=== PATIENT | male | born 1965 | race Caucasian/White ===

== ENCOUNTER 2017-08-09 07:43 | Emergency (ER) | payer OTHER ==
[2017-08-09] MEDS: IBUPROFEN 600 MG TAB PO (08:25)
== END 2017-08-09 09:08 | disposition home or self-care (01) ==
LOC: FTE 07:43
DX: M75.31 Calcific tendinitis of right shoulder (principal)
CPT/HCPCS: 73030; 73030-RT; 99283-25

== ENCOUNTER 2017-12-14 09:05 | Day surgery (SDC) | payer OTHER ==
[2017-12-14] MEDS ORDERED: LIDOCAINE 4% SOLUTION 50 ML BTL (10:22)
[2017-12-14] MEDS ORDERED: FENTAnyl 50 MCG/ML VIAL (11:16)
[2017-12-14] MEDS ORDERED: MIDAZOLAM 1 MG/ML 2 ML INJ ×2 (11:16)
== END 2017-12-14 13:47 | disposition home or self-care (01) ==
LOC: SUR 09:05 → GIL 09:10 → SUR 13:47
DX: Z12.11 Encounter for screening for malignant neoplasm of colon (principal); K21.0 Gastro-esophageal reflux disease with esophagitis; K57.90 Diverticulosis of intestine, part unspecified, without perforation or abscess without bleeding; K64.4 Residual hemorrhoidal skin tags; K64.8 Other hemorrhoids
CPT/HCPCS: 43239; 88305; 88312; 88313